=== PATIENT | female | born 2000 | race Two or more races ===

== ENCOUNTER 2025-05-05 19:34 | Emergency (ER) | payer MEDICAID, OTHER ==
[~2025-05-05] VITALS: Ht 165.1 cm; Wt 73.1 kg
[2025-05-05 19:41] VITALS: BP 118/95; PULSE 84; RESP 16; TEMP 98.1; O2SAT 96
--- NOTE | 2025-05-05 22:15 | ED.PDOC ---
History of Present Illness HPI Comments 24 y/o F presents with vaginal rash, with associated itchiness and redness. Patient reports on no history of STI's and has an appointment with her PCP at the end of the month but decided not to wait and come to the ED instead. Denies any further acute symptoms. Chief Complaint: Rash Time Seen by MD: 21:30 Allergies: Coded Allergies: No Known Drug Allergy (Verified Allergy, Unknown, 05/05/25) Information Source: Patient Mode of Arrival: Ambulatory Past Medical History PAST MEDICAL HISTORY: Denies Surgical History: Denies all surgeries RESIDENT ASSISTANT CNA History: No Pertinent RESIDENT ASSISTANT CNA History All Other Systems: Reviewed and Negative (as per HPI) Physical Exam General Appearance: No Apparent Distress, Normal HEENT: Normal ENT Inspection, Pharynx Normal, TMs Normal Neck: Full Range of Motion, Non-Tender, Normal, Normal Inspection Respiratory: Chest Non-Tender, Lungs Clear, No Accessory Muscle Use, No Respiratory Distress, Normal Breath Sounds Cardiovascular: No Edema, No JVD, No Murmur, No Gallop, Normal Peripheral Pulses, Regular Rate/Rhythm Breast Exam: Deferred Gastrointestinal: No Organomegaly, Non Tender, No Pulsatile Mass, Normal Bowel Sounds, Soft Genitalia: Deferred Pelvic: Deferred Rectal: Deferred Extremities: No calf tenderness, Normal capillary refill, Normal inspection, Normal range of motion, Non-tender, No pedal edema Musculoskeletal : Apperance: Normal Neurologic: Alert, optical laboratory manager II-XII nml as Tested, No Motor Deficits, Normal Affect, Normal Mood, No Sensory Deficits Cerebellar Function: Normal Reflexes: Normal Skin: Dry, Normal Color, Warm Lymphatic: No Adenopathy Was a procedure done? Was a procedure done?: No Differential Dx Considerations may include: STI, allergic reaction, UTI, fungal infection, herpetic eruption, intertrigo, cellulitis among others X-Ray, Labs, Meds, VS Vital Signs Date Time Temp Pulse Resp B/P (MAP) Pulse Ox O2 Delivery O2 Flow Rate FiO2 05/05/25 19:41 98.1 84 16 118/95 96 98.1 Time of 1ST Reevaluation: 22:00 Reevaluation 1ST: Unchanged Time of 2ND Reevaluation: 02:48 Reevaluation 2ND: Eloped Patient Education/Counseling: Diagnosis, Treatment, Need For Follow Up Family Education/Counseling: No Family Present Comments Patient reports having an itchy rash in the genital area. However due to overcrowding we were unable to have a place to do the pelvic exam. The time we secured a place to do the pelvic exam patient had eloped Additional Information Previous visits: N/A The following tests were ordered, and results were reviewed by me: N/A Additional Information was gathered from interviewing the following independent historians: N/A I reviewed and agreed with the following test results read by other providers: N/A I discussed treatment and results with medical personnel and: patient SEPSIS Sepsis Screen Date sepsis recognized/suspect: May 05, 2025 Time Sepsis recognized/suspect: 1940 Recent Procedure: No On Antibiotic Therapy: No Respiratory Rate >20: No Heart Rate >90: No Temp<36 C (96.8 F) or >38.3 C: No SBP <90 or MAP <65 mmHG: No New Acute Mental Status Change: No Is the patient on CPAP, BIPAP,: No Physician Orders Pelvic Setup (05/05/25 ) Vital Signs Date Time Temp Pulse Resp B/P (MAP) Pulse Ox O2 Delivery O2 Flow Rate FiO2 05/05/25 19:41 98.1 84 16 118/95 96 98.1 Departure 1 Departure Time of Disposition: 02:49 Impression: Primary Impression: Rash Disposition: 07 LEFT AWOL/ELOPED Condition: Other (Unknown) Critical Care Note Critical Care Time?: No Stability Stability form required: No Heart Score Heart Score: Heart Score Response (Comments) Value History N/A 0 EKG N/A 0 Age N/A 0 Risk Factors N/A 0 Troponin N/A 0 Total 0 I personally scribed for ADEEL MAHMOOD MD ([email or web address]) on 05/05/25 at 22:15. Electronically submitted by Cash Soliz ([email or web address]). ADEEL MAHMOOD MD May 05, 2025 22:15
== END 2025-05-06 02:48 | disposition left against medical advice (07) ==
LOC: ER 19:34
DX: R21 Rash and other nonspecific skin eruption (principal)